=== PATIENT | male | born 1965 | race Caucasian/White ===

== ENCOUNTER 2023-07-16 16:58 | Emergency (ER) | payer OTHER ==
[2023-07-16 17:17] VITALS: RESP 18; TEMP 98.3; BMI 27.8
[2023-07-16] MEDS ORDERED: ACETAMINOPHEN 325 MG TABLET (FP) ONE (18:37)
[2023-07-16] MEDS ORDERED: FAMOTIDINE 20 MG TABLET ONE (18:37)
[2023-07-16] MEDS: ACETAMINOPHEN 325 MG TABLET (FP) PO ONE (18:46)
[2023-07-16] MEDS: FAMOTIDINE 10 MG TABLET PO ONE (18:46)
[2023-07-16 18:50] LABS: BASO % 0.7 % (0-2.0); EOS % 3.8 % (0-4.5); HEMATOCRIT 50.9 % (35.4-49); HEMOGLOBIN 17.1 GM/dL (11.7-16.9); MCH 30.6 pg (25.7-33.7); MCHC 33.6 g/dl (32.0-35.9); MEAN PLT VOLUME 7.7 fl (7.5-11.1); MONO % 6.5 % (3.8-10.2); PLATELET COUNT 228 10^3/uL (134-434); RBC 5.59 M/mm3 (4.00-5.60); RDW 13.6 % (11.9-15.9); WHITE BLOOD COUNT 8.8 K/mm3 (4.0-10.0)
[2023-07-16 19:09] LABS: POTASSIUM 4.4 mmol/L (3.5-5.1)
[2023-07-16 19:12] LABS: CALCIUM 9.4 mg/dL (8.5-10.1)
[2023-07-16 19:13] LABS: ALBUMIN 3.6 g/dl (3.4-5.0); MAGNESIUM 2.2 mg/dL (1.8-2.4)
[2023-07-16 19:16] LABS: CREATININE 1.1 mg/dL (0.55-1.3)
[2023-07-16 19:17] LABS: BILIRUBIN,TOTAL 0.5 mg/dL (0.2-1)
[2023-07-16 19:18] LABS: TOT PROT 6.6 g/dl (6.4-8.2)
[2023-07-16] MEDS: SODIUM CHLORIDE 0.9% 500 ML INFUS.BAG IV ONE (21:09)
[2023-07-17 00:20] VITALS: BP 125/78; PULSE 76
== END 2023-07-17 00:22 | disposition home or self-care (01) ==
LOC: JER 16:58
DX: R42 Dizziness and giddiness (principal); R10.13 Epigastric pain; R10.12 Left upper quadrant pain; J02.9 Acute pharyngitis, unspecified; R07.9 Chest pain, unspecified; Z20.822 Contact with and (suspected) exposure to COVID-19
CPT/HCPCS: 0241U-QW; 36415; 71046-TC-FY; 74177-TC; 80053; 83690; 83735; 84484; 85025; 93005; 93010; 99285-25